=== PATIENT | male | born 1965 | race Caucasian/White ===

== ENCOUNTER 2016-04-25 10:23 | Emergency (ER) | payer MEDICAID ==
[2016-04-25 10:43] VITALS: RESP 16
[2016-04-25 11:16] LABS: COLOR YELLOW; LEUKOCYTE ESTERASE,URINE NEGATIVE (NEGATIVE); NITRITE,URINE NEGATIVE (NEGATIVE); PH,URINE 6.5 (5.0-7.5)
--- NOTE | 2016-04-25 11:32 | UCPHY ---
[id number]. NO PAIN WITH URINATION. PAIN INTERMITTANT. TRIED USING SUPPORT STRAP WITH NO IMPROVEMENT. Source: Patient Exam Limitations: No limitations - Personal History Current Tetanus/Diphtheria Vaccine: Yes Current Tetanus Diphtheria and Acellular Pertussis (TDAP): Unsure - Medical/Surgical History Hx Asthma: No Hx Chronic Respiratory Disease: No Hx Diabetes: No Hx Cardiac Disease: No Hx Renal Disease: No Hx Cirrhosis: No Hx Alcoholism: No Hx HIV/AIDS: No Hx Splenectomy or Spleen Trauma: No Other PMH: PSH:ORTHO SURG - Family History Significant Family History: No pertinent family hx - Social History Smoking Status: Never smoked Alcohol Use: None Drug Use: Other (Oxy for pain status post knee surgery) Time Seen by Provider: 04/25/16 11:29 HPI/ROS: HPI: 51-year-old male presents to urgent care with chief concern left testicular and groin pain. Symptoms onset suddenly while standing at work 4 days ago. Symptoms are only present while he is standing at work. Reports up to 7/10 left groin pain. May have increased urinary frequency at night time. Denies fever, chills, cough, shortness of breath, chest pain, abdominal pain, nausea, vomiting, urinary burning, penile discharge, new low back pain. Denies significant past medical history. Tried using a support strap with minimal improvement. Had left knee surgery recently and has left over Oxy that helps with the pain. Presently pain free. ROS:10 point review of systems is negative other than as stated in HPI (Korin Saldana) - Physical Exam Exam: Vital signs stable, reviewed by me General: Awake, alert, calm, cooperative. No acute distress. Head: Normalocephalic. Atraumatic. EENT: PERRLA. EOMI. No pallor or injection. Anicteric. No nystagmus. No injection. Neck: Supple, nontender. No lymphadenopathy. Full range of motion. No meningismus. Respiratory: Breathing unlabored. Breath sounds equal bilaterally and clear to auscultation. No adventitious sounds. CV: Chest nontender, atraumatic. Heart rate regular. No murmur, distal pulses 2+ bilaterally. Brisk cap refill all extremities. GI: Abdomen soft, nontender. Bowel sounds normoactive and positive x4 quadrants. : No suprapubic tenderness. No CVA or flank tenderness. Left testicle without erythema, swelling, nodules, discomfort to palpation. Groin: No lymphadenopathy or mass Neuro: Alert. Oriented x 3. Speech clear. Nonfocal cranial nerves throughout. Sensation intact all extremities. Skin: Skin warm, dry, intact. Skin turgor normal. Extremities: Full range of motion in all 4 extremities. (Korin Saldana) Constitutional: Initial Vital Signs Temperature (C) 36.9 C 04/25/16 10:35 Heart Rate 86 04/25/16 10:35 Respiratory Rate 16 04/25/16 10:35 Blood Pressure 126/70 H 04/25/16 10:35 O2 Sat (%) 95 04/25/16 10:35 O2 Delivery Mode Room Air Allergies/Adverse Reactions: No Known Allergies Allergy (Unverified 04/25/16 10:40) Home Medications: Medication Instructions Recorded NK [No Known Home Meds] 04/25/16 Medical Decision Making - Diagnostics Imaging: Testicular Sonogram Clinical Indications: Testicular pain, left and intermittent Technique: Scrotal contents were imaged with the high resolution transducer. Color and pulsed Doppler were recorded on each side. Findings: The right testicle measures 3.6 x 3.1 x 4.4 cm. It is normal in size , morphology and echotexture. There is trace physiologic fluid present. Blood flow is normal. Resistive index is 0.60. Epididymis is unremarkable. Left testicle measures 2.9 x 3.6 x 5.0 cm. Blood flow is normal. The epididymis is unremarkable. Resistive index is 0.61. Physiologic fluid is present. Impression: Normal testicular exam. Specifically, no evidence of torsion. Critical results relayed by Dr. Kwabena Andrade to Dr. Vance Pang on April 25, 2016, at 11: 58 a.m. Dictated By: Kwabena Andrade MD (Korin Saldana) ED Course/Re-evaluation: 51-year-old male presents to Urgent Care with left testicular and groin pain that onset 4 days ago. There is no fever. He is nontoxic and afebrile. At time of exam he has no discomfort. Discomfort is only present when he stands at work but has persisted. Urinalysis shows trace ketones otherwise negative for evidence of UTI. (Korin Saldana) Urgent Care PA supervision Physician documentation: The patient was evaluated and managed by the physician child development assistant. My co- signature indicates that I have reviewed this chart and I agree with the findings and plan of care as documented. I am the secondary supervising physician. (Vance Pang) Differential Diagnosis: Differential diagnosis includes but is not limited to muscular strain, epididymitis, orchitis, detorsion, hernia, varicocele or hydrocele, urinary tract infection (Korin Saldana) Departure - Departure Disposition: Home, Routine, Self-Care Clinical Impression: Testicular pain, left Condition: Good Instructions: Testicle Pain (ED) Additional Instructions: Plan: Your urinalysis shows no evidence of infection Your testicular ultrasound is normal You may use 600 mg of ibuprofen every 6 hours for fever, inflammation, or pain. Always take ibuprofen with food and stay well hydrated while taking. Do not exceed the maximum allowable dose in a 24 hour period which is 2400 mg. May use your stronger pain medication every 6 hours as needed--Never drink or drive while taking this medication. This medication impairs decision making capacity so do not work or sign important documents while taking. This medication its constipating so drink plenty of fluids and consider an over-the- counter stool softener such as docusate sodium (Colace) while taking this medication. This medication has addictive properties. You should use the least amount for the shortest amount of time. [facility] ED and Urgent Care do not refill narcotic pain medication prescriptions. This is a hospital policy. You will need to follow up as indicated for recheck for further narcotic refills. Follow up with primary care later this week for recheck and further evaluation for ongoing discomfort--When you call to schedule appointment, please let the office know you are an "ER follow up" appointment" Wear testicle support while at work Referrals: NONE *PRIMARY CARE P,. [Primary Care Provider] - As per Instructions Florinda Fung MD [Medical Doctor] - As per Instructions - PQRS PQRS Measurement: Not applicable (Korin Saldana)
--- NOTE | 2016-04-25 12:02 | US ---
Testicular Sonogram Clinical Indications: Testicular pain, left and intermittent Technique: Scrotal contents were imaged with the high resolution transducer. Color and pulsed Doppl er were recorded on each side. Findings: The right testicle measures 3.6 x 3.1 x 4.4 cm. It is normal in size, morphology and echote xture. There is trace physiologic fluid present. Blood flow is normal. Resistive index is 0.60. Epidi dymis is unremarkable. Left testicle measures 2.9 x 3.6 x 5.0 cm. Blood flow is normal. The epididymis is unremarkable. Resi stive index is 0.61. Physiologic fluid is present. Impression: Normal testicular exam. Specifically, no evidence of torsion. Critical results relayed by Dr. Kwabena Andrade to Dr. Vanec Pang on April 25, 2016, at 11:58 a .m.
[2016-04-25 12:19] VITALS: BP 124/71; PULSE 71; TEMP 98.5; O2SAT 96
== END 2016-04-25 12:18 | disposition home or self-care (01) ==
LOC: CED 10:23
DX: N50.812 Left testicular pain (principal)
CPT/HCPCS: 76870-PO; 81003-PO; G0463-PO

== ENCOUNTER 2016-04-27 18:51 | Emergency (ER) | payer MEDICAID ==
[2016-04-27 19:10] VITALS: TEMP 96.8; O2SAT 94
[2016-04-27] MEDS ORDERED: NS 1,000 ML IV ONE (19:35)
--- NOTE | 2016-04-27 19:41 | UCPHY ---
H & P Time Seen by Provider: 04/27/16 19:29 Patient Type: Established HPI/ROS: HPI Lower abdominal pain, concerned about hernia. 51-year-old male by private vehicle. This patient was seen at the urgent care this last . He had a complaint of left-sided lower inguinal pain with radiation into the left testicle. He had an unremarkable testicular ultrasound. He presents to Urgent Care this evening stating that he does not have any testicular pain but thinks he has a hernia on the left side of his lower abdomen. He reports feeling a bulge which is somewhat tender and worse when he is standing. He denies fever. No urinary complaints. No other complaints. ROS: Constitutional: No fever, no chills. No weakness. Respiratory: No cough. No shortness of breath. Cardiac: No chest pain, no palpitations. Gastrointestinal: N As above, no vomiting, no diarrhea. Genitourinary: No hematuria. No dysuria or increased frequency with urination. Musculoskeletal: No back pain. No neck pain. No myalgias or arthralgias. Skin: No rashes. Neurological: No headache. No focal weakness or altered sensation. Past medical history: as above. Otherwise denies. Social history: Here by himself. Physical Exam: General Appearance: Alert, no distress. This patient is responding to questions appropriately and in full sentences. This patient appears well- hydrated and well-nourished. Eyes: Pupils equal and round no pallor or injection. No lid edema, erythema or injection. Respiratory: There are no retractions, lungs are clear to auscultation with good air movement bilaterally. Cardiovascular: Regular rate and rhythm. No murmur. Gastrointestinal: Abdomen is soft and nontender, no masses, bowel sounds normal. No focal tenderness at McBurney's point. No Pena sign. He likely has a small left-sided reducible inguinal hernia. Testicular exam: No swelling. Normal lie. No tenderness on palpation or masses. No discoloration or other abnormalities. Neurological: Motor sensory function is grossly intact. Cranial nerves are normal. Gait is normal. Skin: Warm and dry, no rashes. Extremities are symmetrical. All joints range without pain or impingement. Psychiatric: No agitation. No depression. Database: EKG: Imaging: CT scan of abdomen and pelvis with IV contrast:Small left-sided inguinal hernia with some fat, small umbilical hernia with some fat. 5.5 mm right middle lobe lung nodule. Study otherwise unremarkable. No significant pathology. Results were discussed with staff radiologist Dr. Kwabena Andrade. Procedures: Emergency department course: After my evaluation, explained the likely diagnosis of a reducible left-sided inguinal hernia. The patient told me that he is having more pain when he is standing. He is concerned. He is asking for imaging. he will be sent for CT of his abdomen and pelvis to evaluate for possible lower abdominal verses inguinal hernia. 8:55 p.m., patient re-evaluated. Repeat abdominal exam is soft, nontender nondistended. Results of CT scan blood work and urinalysis discussed with him. Need for follow-up for right middle lobe lung nodule in 5-6 months discussed. General surgery referral discussed for elective management. He feels comfortable going home and I feel he is safe for discharge. Return to Urgent Care/emergency department precautions reviewed. All of his questions were answered. He was discharged in good condition. Differential Diagnosis: The differential diagnosis on this patient includes but is not limited to reducible left-sided inguinal hernia. Incarcerated hernia, testicular torsion, epididymitis, appendicitis, colitis unlikely. This represents a partial list of diagnoses considered. These considerations are based on history, physical exam, past history, reassessment and diagnostic testing. Smoking Status: Never smoked Constitutional: Initial Vital Signs Temperature (C) 36 C 04/27/16 19:05 Heart Rate 60 04/27/16 19:05 Respiratory Rate 18 04/27/16 19:05 O2 Sat (%) 94 04/27/16 19:05 O2 Delivery Mode Room Air Allergies/Adverse Reactions: No Known Allergies Allergy (Unverified 04/25/16 10:40) Home Medications: Medication Instructions Recorded NK [No Known Home Meds] 04/25/16 Medical Decision Making - Data Points Laboratory Results: Laboratory Results 04/27/16 19:50 04/27/16 19:50 04/27/16 04/27/16 20:50 19:50 WBC 6.78 10^3/uL (3.80-9.50) RBC 4.36 L 10^6/uL (4.40-6.38) Hgb 14.6 g/dL (13.7-17.5) Hct 40.5 % (40.0-51.0) MCV 92.9 fL (81.5-99.8) MCH 33.5 pg (27.9-34.1) MCHC 36.0 g/dL (32.4-36.7) RDW 11.4 L % (11.5-15.2) Plt Count 184 10^3/uL (150-400) MPV 9.9 fL (8.7-11.7) Neut % (Auto) 64.0 % (39.3-74.2) Lymph % (Auto) 27.7 % (15.0-45.0) [place] % (Auto) 6.5 % (4.5-13.0) Eos % (Auto) 0.9 % (0.6-7.6) Baso % (Auto) 0.6 % (0.3-1.7) Nucleat RBC Rel Count 0.0 % (0.0-0.2) Absolute Neuts (auto) 4.34 10^3/uL (1.70-6.50) Absolute Lymphs (auto) 1.88 10^3/uL (1.00-3.00) Absolute Monos (auto) 0.44 10^3/uL (0.30-0.80) Absolute Eos (auto) 0.06 10^3/uL (0.03-0.40) Absolute Basos (auto) 0.04 10^3/uL (0.02-0.10) Absolute Nucleated RBC 0.00 10^3/uL (0-0.01) Immature Gran % 0.3 % (0.0-1.1) Immature Gran # 0.02 10^3/uL (0.00-0.10) Sodium 139 mEq/L (134-144) Potassium 3.6 mEq/L (3.5-5.2) Chloride 102 mEq/L (97-110) Carbon Dioxide 28 mEq/l (22-31) Anion Gap 9 mEq/L (8-16) BUN 18 mg/dL (7-23) Creatinine 1.3 mg/dL (0.7-1.3) Estimated GFR 59 Glucose 92 mg/dL (70-100) Calcium 9.0 mg/dL (8.5-10.4) Urine Color YELLOW Urine Appearance CLEAR Urine pH 5.5 (5.0-7.5) Ur Specific [place] >= 1.030 (1.002-1.030) Urine Protein NEGATIVE (NEGATIVE) Urine Ketones NEGATIVE (NEGATIVE) Urine Blood NEGATIVE (NEGATIVE) Urine Nitrate NEGATIVE (NEGATIVE) Urine Bilirubin NEGATIVE (NEGATIVE) Urine Urobilinogen 0.2 EU (0.2-1.0) Ur Leukocyte Esterase NEGATIVE (NEGATIVE) Ur Culture Indicated? NOT INDICATED (NI) Urine Glucose NEGATIVE (NEGATIVE) Medications Given: Discontinued Medications Sodium Chloride (Ns) 1,000 mls @ 0 mls/hr IV ONCE ONE PRN Reason: Wide Open Stop: 04/27/16 19:36 Last Admin: 04/27/16 19:50 Dose: 1,000 mls Departure - Departure Disposition: Home, Routine, Self-Care Clinical Impression: Left inguinal hernia Condition: Good Instructions: Inguinal Hernia (ED) Additional Instructions: Read and follow provided instructions. Follow-up with General surgeon, Dr. Ish Wiggins, for re-evaluation and elective management of your hernias. Ibuprofen dosin mg every 6 hours with meals for the next 3 days only. Return to the emergency department for worsening pain, vomiting, fever or other serious concerns. Referrals: Ish Wiggins MD [Medical Doctor] - As per Instructions - PQRS PQRS Measurement: Not applicable.
[2016-04-27] MEDS ORDERED: IOPAMIDOL (ISOVUE-300) 100 ML BTL IV ONE (19:46)
[2016-04-27 19:55] LABS: % IMMATURE GRANULYOCYTES 0.3 % (0.0-1.1); ABSOLUTE IMMATURE GRANULOCYTES 0.02 10^3/uL (0.00-0.10); ADD DIFF? NO; ADD MORPH? NO; ADD SCAN? NO; ATYPICAL LYMPHOCYTE FLAG 20 (0-99); FRAGMENT RBC FLAG 0 (0-99); HEMATOCRIT 40.5 % (40.0-51.0); HEMOGLOBIN 14.6 g/dL (13.7-17.5); LEFT SHIFT FLG 0 (0-99); LIPEMIA HEMOLYSIS FLAG 90 (0-99); MEAN CELL HEMOGLOBIN 33.5 pg (27.9-34.1); MEAN CELL VOLUME 92.9 fL (81.5-99.8); MEAN PLATELET VOLUME 9.9 fL (8.7-11.7); PLATELET CLUMPS FLAG 0 (0-99); PLATELET COUNT 184 10^3/uL (150-400); RED BLOOD CELL COUNT 4.36 10^6/uL (4.40-6.38); RED CELL DISTRIBUTION WIDTH 11.4 % (11.5-15.2)
[2016-04-27 20:07] LABS: CREATININE 1.3 mg/dL (0.7-1.3); POTASSIUM 3.6 mEq/L (3.5-5.2)
[2016-04-27 20:54] LABS: COLOR YELLOW; LEUKOCYTE ESTERASE,URINE NEGATIVE (NEGATIVE); NITRITE,URINE NEGATIVE (NEGATIVE); PH,URINE 5.5 (5.0-7.5)
[2016-04-27 21:03] VITALS: BP 119/78; PULSE 67; RESP 16
--- NOTE | 2016-04-27 21:42 | CT ---
CT Abdomen and Pelvis, With Oral and IV Contrast. Clinical Indication: Abdominal pain. Technique: 1.25-mm contiguous helical axial scanning through the abdomen after the uneventful admini stration of 90 mL of Isovue-300. Routine reconstructions were performed in the coronal and sagittal planes. Dose reduction technique was performed. FINDINGS: There is a 5-mm area of triangular nodularity or scarring in the right middle lobe. The l delores bases are otherwise clear. The liver and gallbladder are unremarkable. The spleen, pancreas, an d adrenals are unremarkable. An incidental posterior cyst is noted in the kidney. There is an umbil ical hernia containing fat only. There is an inguinal hernia on the left containing fat only. Small bowel and colon are grossly unremarkable. Bones exhibit mild degenerative changes. Vacuum disk at L4-L5, T7-T8, T10-T11, and T11-T12. IMPRESSIONS 1. Fat-containing umbilical hernia and fat-containing inguinal hernia on the left. 2. A 5-mm right middle lobe nodule, pleural-based, probably benign. The patient is low risk for can cer. Single follow up in a year is recommended per Fleischner criteria. Results relayed by Dr. Andrade to Dr. Perez on April 27, 2016 at 2054 hours.
== END 2016-04-27 21:14 | disposition home or self-care (01) ==
LOC: CED 18:51
DX: K40.90 Unilateral inguinal hernia, without obstruction or gangrene, not specified as recurrent (principal)
CPT/HCPCS: 74177-PO; 80048-PO; 81003-PO; 85025-PO; 96360-PO; 99215-PO; G0463-PO; Q9967

== ENCOUNTER 2016-06-23 10:44 | Emergency (ER) | payer MEDICAID ==
[2016-06-23 10:51] VITALS: BP 122/62; PULSE 78; RESP 18; TEMP 98; O2SAT 97
[2016-06-23 11:16] LABS: COLOR YELLOW; LEUKOCYTE ESTERASE,URINE NEGATIVE (NEGATIVE); NITRITE,URINE NEGATIVE (NEGATIVE); PH,URINE 5.5 (5.0-7.5)
--- NOTE | 2016-06-23 11:25 | UCPHY ---
H & P Time Seen by Provider: 06/23/16 10:48 Patient Type: Established HPI/ROS: 51-year-old male presents with multiple complaints, primarily concerned with frequent urination during the nighttime because it keeps him from sleeping. He also complains of a persistent cold for over 1 week as well as ringing in his ears for several months and intermittent problems with hemorrhoids. Review of systems As per HPI-ear ringing, cold symptoms, hemorrhoids General no fever no chills no weakness HEENT no eye pain no eye discharge. No eye redness, no sore throat Respiratory no cough, no shortness of breath Cardiac no chest pain, no peripheral edema GI no abdominal pain, no diarrhea, no constipation, no nausea, no vomiting no flank pain, no hematuria, no dysuria, frequent urination Musculoskeletal no myalgias, no joint pain Heme no easy bruising, no easy bleeding Endo no polyuria, no polydipsia Skin no rashes, no pruritus Neuro no syncope, no dizziness, no headaches Psych is no suicidal ideation, no homicidal ideation Past Medical/Surgical History: Hemorrhoids Social History: Denies alcohol or drug use He rides a motorcycle Smoking Status: Never smoked Physical Exam: 51-year-old male Alert and oriented nontoxic appearance, no acute distress afebrile Atraumatic normocephalic Extraocular muscles intact, anicteric Nares mild yellowish discharge, nasal turbinates erythema TMs clear bilaterally Oropharynx mild erythema no tonsillar swelling no exudate no uvular deviation, tolerating own secretions Neck supple no lymphadenopathy Lungs clear to auscultation bilaterally Heart regular rate and rhythm Abdomen normoactive bowel sounds soft nontender Extremities no cyanosis clubbing or edema Skin no rash Constitutional: Initial Vital Signs Temperature (C) 36.6 C 06/23/16 10:47 Heart Rate 78 06/23/16 10:47 Respiratory Rate 18 06/23/16 10:47 Blood Pressure 122/62 H 06/23/16 10:47 O2 Sat (%) 97 06/23/16 10:47 O2 Delivery Mode Room Air Allergies/Adverse Reactions: No Known Allergies Allergy (Unverified 04/25/16 10:40) Home Medications: Medication Instructions Recorded Hydrocortisone 2.5% 1 odin TP BID #30 gm 06/23/16 [Hydrocortisone 2.5% cream (*)] Medical Decision Making ED Course/Re-evaluation: Patient seen and evaluated for multiple complaints including urinary frequency, ringing in his ears, persistent called and hemorrhoid. Differential diagnosis URI, ear infection, BPH, urinary tract infection Urinalysis negative for glucose negative for infection Impression/plan 1. URI 2. Symptomatic hemorrhoids 3. Urinary frequency, BPH Hydrocortisone 2.5% given for hemorrhoid, at patient's request Patient given referral to Urology for his urinary frequency and likely BPH Patient given referral to Ear Nose Throat for his ringing in his ears of several months duration Also recommended to patient that he began seeing a primary care physician to follow all of his problems. - Data Points Laboratory Results: 06/23/16 10:50 Urine Color YELLOW Urine Appearance CLEAR Urine pH 5.5 (5.0-7.5) Ur Specific [place] 1.025 (1.002-1.030) Urine Protein NEGATIVE (NEGATIVE) Urine Ketones NEGATIVE (NEGATIVE) Urine Blood NEGATIVE (NEGATIVE) Urine Nitrate NEGATIVE (NEGATIVE) Urine Bilirubin NEGATIVE (NEGATIVE) Urine Urobilinogen 0.2 EU EU (0.2-1.0) Ur Leukocyte Esterase NEGATIVE (NEGATIVE) Ur Culture Indicated? NOT INDICATED (NI) Urine Glucose NEGATIVE (NEGATIVE) Departure - Departure Disposition: Home, Routine, Self-Care Clinical Impression: Tinnitus, Acute hemorrhoid, Urinary frequency, URI (upper respiratory infection ) Condition: Good Instructions: Hemorrhoids (ED), Benign Prostatic Hypertrophy (ED), Tinnitus (ED ) Additional Instructions: May use fluticasone 1 spray each nostril twice a day. Referrals: Luis Carlos Pepe MD [Medical Doctor] - As per Instructions Smita Hernandez MD [Medical Doctor] - As per Instructions [facility] [Provider Group] - As per Instructions Prescriptions: Hydrocortisone 2.5% [Hydrocortisone 2.5% cream (*)] 1 odin TP BID #30 gm - PQRS PQRS Measurement: na
== END 2016-06-23 11:52 | disposition home or self-care (01) ==
LOC: CED 10:44
DX: R35.0 Frequency of micturition (principal); K64.9 Unspecified hemorrhoids; H93.19 Tinnitus, unspecified ear; J06.9 Acute upper respiratory infection, unspecified
CPT/HCPCS: 81003-PO; 99214-PO; G0463-PO